=== PATIENT | female | born 1970 | race Hispanic/Latino ===

== ENCOUNTER 2017-03-25 01:40 | Emergency (ER) | payer MEDICARE, MEDICAID ==
[2017-03-25 01:41] VITALS: BMI 26.6
[2017-03-25 02:00] VITALS: BP 165/106; PULSE 79; RESP 18; TEMP 98.7; O2SAT 99
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
--- NOTE | 2017-03-25 03:04 | CT ---
EXAM: CT Head Without Intravenous Contrast CLINICAL HISTORY: 46 years old, female; Pain; Headache TECHNIQUE: Axial computed tomography images of the head/brain without intravenous contrast. This CT exam was performed using one or more of the following dose reduction techniques: automated exposure control, adjustment of the mA and/or kV according to patient size, and/or use of iterative reconstruction technique. Coronal and sagittal reformatted images were created and reviewed. COMPARISON: CT - HEAD W/O CONTRAST 12/31/2016 12:13:39 AM FINDINGS: Brain: No intracranial hemorrhage. No mass. No definite edema. Ventricles: No hydrocephalus. Bones/joints: No acute fracture. Soft tissues: Unremarkable. Sinuses: No acute sinusitis. Mastoid air cells: No mastoid effusion. Orbits: Unremarkable as visualized. IMPRESSION: 1. No acute intracranial abnormality. 2. Incidental/non-acute findings are described above.
== END 2017-03-25 05:28 | disposition home or self-care (01) ==
LOC: H.ER 01:40
DX: S09.90XA Unspecified injury of head, initial encounter (principal); Y04.0XXA Assault by unarmed brawl or fight, initial encounter; Y92.89 Other specified places as the place of occurrence of the external cause; E03.9 Hypothyroidism, unspecified; F20.9 Schizophrenia, unspecified; F31.9 Bipolar disorder, unspecified; I10 Essential (primary) hypertension; R51 Headache

== ENCOUNTER 2017-05-07 01:51 | Emergency (ER) | payer MEDICARE, MEDICAID ==
[2017-05-07 01:51] VITALS: BMI 26.6
[2017-05-07 02:16] VITALS: RESP 16; TEMP 98.1; O2SAT 96
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
[2017-05-07 03:03] VITALS: BP 150/100; PULSE 72
== END 2017-05-07 06:15 | disposition home or self-care (01) ==
LOC: H.ER 01:51
DX: S09.90XA Unspecified injury of head, initial encounter (principal); Y04.0XXA Assault by unarmed brawl or fight, initial encounter; Y92.89 Other specified places as the place of occurrence of the external cause; F20.9 Schizophrenia, unspecified; F31.9 Bipolar disorder, unspecified; I10 Essential (primary) hypertension

== ENCOUNTER 2017-06-07 23:29 | Observation (INO) | payer MEDICARE, MEDICAID ==
[2017-06-07 23:30] VITALS: BMI 26.6
[2017-06-08] VITALS: TEMP 98.8
--- NOTE | 2017-06-08 02:29 | ED PDOC ---
HPI: General Adult Time Seen by Provider: 06/08/17 02:20 Chief Complaint (Nursing): Med Refill Chief Complaint (Provider): Med refill History Per: Patient Additional Complaint(s): Patient took last dose of HCTZ today. Presents to ED without any complaints at this time Past Medical History Reviewed: Nursing Documentation, Vital Signs Vital Signs: Last Vital Signs Temp 98.8 F 06/07/17 23:58 Pulse 66 06/07/17 23:58 Resp 18 06/07/17 23:58 BP 138/91 H 06/07/17 23:58 Pulse Ox 99 06/08/17 02:29 - Medical History PMH: Bipolar Disorder, Depression, HTN, Hypothyroidism, Schizophrenia Denies: Chronic Kidney Disease - Surgical History Surgical History: Cholecystectomy - Family History Family History: States: Unknown Family Hx - Living Arrangements Living Arrangements: Other - Social History Current smoker - smoking cessation education provided: No Alcohol: None Drugs: Denies - Home Medications Home Medications: Ambulatory Orders Medication Instructions Recorded Metoprolol Tartrate 25 mg PO BID #14 tab 02/10/16 Hydroxyzine Pamoate [Vistaril] 25 mg PO TID PRN #30 capsule 06/27/16 Prednisone 3 tab PO DAILY #24 tablet 06/27/16 Naproxen [Naprosyn] 500 mg PO BID #20 tab 07/03/16 hydroCHLOROthiazide [Hydrodiuril] 25 mg PO DAILY #14 tab 09/21/16 hydroCHLOROthiazide [Hydrodiuril] 25 mg PO DAILY #30 tab 10/11/16 Ibuprofen [Motrin Tab] 600 mg PO Q6 #20 tab 10/14/16 Acetaminophen [Tylenol 325mg tab] 2 tab PO QID PRN #35 tab 11/10/16 hydroCHLOROthiazide [Hydrodiuril] 25 mg PO DAILY #20 tab 11/10/16 Ondansetron ODT [Zofran ODT] 1 odt PO BID PRN #6 odt 12/20/16 hydroCHLOROthiazide [Hydrodiuril] 25 mg PO DAILY #60 tab 12/23/16 Cephalexin [Keflex] 500 mg PO TID #24 capsule 01/09/17 hydroCHLOROthiazide [Hydrodiuril] 25 mg PO DAILY #20 tab 06/08/17 - Allergies Allergies/Adverse Reactions: Allergies Allergy/AdvReac Type Severity Reaction Status Date / Time divalproex sodium Allergy RASH Verified 12/20/16 11:39 [From Depakote] haloperidol [From Haldol] Allergy RASH Verified 12/20/16 11:39 haloperidol lactate Allergy RASH Verified 12/20/16 11:39 [From Haldol] olanzapine [From Zyprexa] Allergy RASH Verified 12/20/16 11:39 risperidone [From Risperdal] Allergy RASH Verified 12/20/16 11:39 Review of Systems ROS Statement: Except As Marked, All Systems Reviewed And Found Negative Physical Exam - Reviewed Nursing Documentation Reviewed: Yes Vital Signs Reviewed: Yes - Physical Exam Appears: Positive for: Well, Non-toxic, No Acute Distress Head Exam: Positive for: ATRAUMATIC, NORMAL INSPECTION, NORMOCEPHALIC Skin: Positive for: Normal Color, Warm, DRY Eye Exam: Positive for: EOMI, Normal appearance, PERRL ENT: Positive for: Normal ENT Inspection Neck: Positive for: Normal, Painless ROM Cardiovascular/Chest: Positive for: Regular Rate, Rhythm Respiratory: Positive for: CNT, Normal Breath Sounds Gastrointestinal/Abdominal: Positive for: Normal Exam, Bowel Sounds, Soft Back: Positive for: Normal Inspection Extremity: Positive for: Normal ROM Neurologic/Psych: Positive for: Alert, Oriented - ECG O2 Sat by Pulse Oximetry: 99 Disposition - Clinical Impression Clinical Impression: Prescription refill - Patient ED Disposition Is Patient to be Admitted: No - Disposition Disposition: Routine/Home Disposition Time: 05:22 Condition: STABLE
[2017-06-08 05:52] VITALS: BP 133/81; PULSE 89; RESP 17; O2SAT 98
== END 2017-06-08 05:55 | disposition home or self-care (01) ==
LOC: H.ER 23:29 → H.EROBSV 23:30
PROVIDERS: ADMIT Emergency Medicine; ATTEND Emergency Medicine
DX: Z76.0 Encounter for issue of repeat prescription (principal); F31.9 Bipolar disorder, unspecified; F20.9 Schizophrenia, unspecified; E03.9 Hypothyroidism, unspecified; I10 Essential (primary) hypertension
CPT/HCPCS: 99281; G0378

== ENCOUNTER 2017-08-07 22:17 | Emergency (ER) | payer MEDICARE, MEDICAID ==
[2017-08-07 22:17] VITALS: BMI 29.3
[2017-08-07 22:25] VITALS: PULSE 88; RESP 16; TEMP 98; O2SAT 100
--- NOTE | 2017-08-07 22:48 | ED PDOC ---
HPI: General Adult Time Seen by Provider: 08/07/17 22:46 Chief Complaint (Nursing): Med Refill Chief Complaint (Provider): med refill History Per: Patient (46 y/o female here for medication refill. States her PMD is currently on vacation. Denies any chest pain/abdominal pain/headache/ dizziness.) Past Medical History Reviewed: Historical Data, Nursing Documentation, Vital Signs Vital Signs: Last Vital Signs Temp 98.0 F 08/07/17 22:23 Pulse 88 08/07/17 22:23 Resp 16 08/07/17 22:23 BP 150/106 H 08/07/17 22:23 Pulse Ox 100 08/07/17 22:23 - Medical History PMH: Bipolar Disorder, Depression, HTN, Hypothyroidism, Schizophrenia Denies: Chronic Kidney Disease - Surgical History Surgical History: Cholecystectomy - Family History Family History: States: Unknown Family Hx - Home Medications Home Medications: Ambulatory Orders Medication Instructions Recorded hydroCHLOROthiazide [Hydrodiuril] 25 mg PO DAILY #20 tab 11/10/16 hydroCHLOROthiazide [Hydrodiuril] 25 mg PO DAILY #14 tab 08/07/17 - Allergies Allergies/Adverse Reactions: Allergies Allergy/AdvReac Type Severity Reaction Status Date / Time divalproex sodium Allergy RASH Verified 08/07/17 22:23 [From Depakote] haloperidol [From Haldol] Allergy RASH Verified 08/07/17 22:23 haloperidol lactate Allergy RASH Verified 08/07/17 22:23 [From Haldol] olanzapine [From Zyprexa] Allergy RASH Verified 08/07/17 22:23 risperidone [From Risperdal] Allergy RASH Verified 08/07/17 22:23 Review of Systems ROS Statement: Except As Marked, All Systems Reviewed And Found Negative Physical Exam - Reviewed Nursing Documentation Reviewed: Yes Vital Signs Reviewed: Yes - Physical Exam Appears: Positive for: Well, Non-toxic, No Acute Distress Head Exam: Positive for: ATRAUMATIC, NORMAL INSPECTION, NORMOCEPHALIC Skin: Positive for: Normal Color, Warm, DRY Eye Exam: Positive for: EOMI, Normal appearance, PERRL ENT: Positive for: Normal ENT Inspection Neck: Positive for: Normal, Painless ROM Cardiovascular/Chest: Positive for: Regular Rate, Rhythm Respiratory: Positive for: CNT, Normal Breath Sounds Gastrointestinal/Abdominal: Positive for: Normal Exam, Bowel Sounds, Soft Back: Positive for: Normal Inspection Extremity: Positive for: Normal ROM Neurologic/Psych: Positive for: Alert, Oriented - ECG O2 Sat by Pulse Oximetry: 100 Disposition - Clinical Impression Clinical Impression: Hypertension - Patient ED Disposition Is Patient to be Admitted: No - Disposition Referrals: [facility] [Outside] Disposition: Routine/Home Disposition Time: 22:48 Condition: FAIR Prescriptions: hydroCHLOROthiazide [Hydrodiuril] 25 mg PO DAILY #14 tab Instructions: Hypertension (DC) Forms: [employer] (Kiswahili)
[2017-08-07 22:57] VITALS: BP 148/90
[2017-08-07] MEDS ORDERED: Alum-Mag Hydrox-Simethicone Susp (30 mL) ONE (23:04)
== END 2017-08-07 22:56 | disposition home or self-care (01) ==
LOC: H.ER 22:17
DX: Z76.0 Encounter for issue of repeat prescription (principal); E03.9 Hypothyroidism, unspecified; F20.9 Schizophrenia, unspecified; F31.9 Bipolar disorder, unspecified; I10 Essential (primary) hypertension

== ENCOUNTER 2017-10-01 22:23 | Emergency (ER) | payer MEDICARE, MEDICAID ==
[2017-10-01 22:23] VITALS: BMI 29.0
[2017-10-01 22:45] VITALS: BP 146/97; PULSE 75; RESP 18; TEMP 97.8; O2SAT 99
--- NOTE | 2017-10-02 03:31 | ED PDOC ---
HPI: General Adult Time Seen by Provider: 10/01/17 22:59 Chief Complaint (Nursing): Med Refill Chief Complaint (Provider): Med Refill History Per: Patient History/Exam Limitations: no limitations Additional Complaint(s): Saige is a 47 y/o female who presents to the ED requesting a refill for her potassium medication. She has no other medical complaints. Patient is noted to be homeless. PMD: Sapna Bautista Past Medical History Reviewed: Historical Data, Nursing Documentation, Vital Signs Vital Signs: Last Vital Signs Temp 97.8 F 10/01/17 22:40 Pulse 75 10/01/17 22:40 Resp 18 10/01/17 22:40 BP 146/97 H 10/01/17 22:40 Pulse Ox 99 10/02/17 03:33 - Medical History PMH: Bipolar Disorder, Depression, HTN, Hypothyroidism, Schizophrenia Denies: Chronic Kidney Disease - Surgical History Surgical History: Cholecystectomy - Family History Family History: States: Unknown Family Hx - Home Medications Home Medications: Ambulatory Orders Medication Instructions Recorded hydroCHLOROthiazide [Hydrodiuril] 25 mg PO DAILY #20 tab 11/10/16 hydroCHLOROthiazide [Hydrodiuril] 25 mg PO DAILY #14 tab 08/07/17 Hydrochlorothiazide [Microzide] 25 mg PO DAILY #10 cap 09/16/17 Potassium Chloride 10 meq PO DAILY #10 capsule.er 09/16/17 Hydrochlorothiazide [Microzide] 12.5 mg PO DAILY #5 cap 10/02/17 Potassium Chloride 10 meq PO DAILY #5 capsule.er 10/02/17 - Allergies Allergies/Adverse Reactions: Allergies Allergy/AdvReac Type Severity Reaction Status Date / Time divalproex sodium Allergy RASH Verified 09/15/17 22:30 [From Depakote] haloperidol [From Haldol] Allergy RASH Verified 09/15/17 22:30 haloperidol lactate Allergy RASH Verified 09/15/17 22:30 [From Haldol] olanzapine [From Zyprexa] Allergy RASH Verified 09/15/17 22:30 risperidone [From Risperdal] Allergy RASH Verified 09/15/17 22:30 Review of Systems ROS Statement: Except As Marked, All Systems Reviewed And Found Negative Physical Exam - Reviewed Nursing Documentation Reviewed: Yes Vital Signs Reviewed: Yes - Physical Exam Appears: Positive for: Well, Non-toxic, No Acute Distress Head Exam: Positive for: ATRAUMATIC, NORMAL INSPECTION, NORMOCEPHALIC Skin: Positive for: Normal Color, Warm, Dry Eye Exam: Positive for: Normal appearance, EOMI, PERRL. Negative for: Nystagmus ENT: Positive for: Normal ENT Inspection Neck: Positive for: Normal, Painless ROM, Supple Cardiovascular/Chest: Positive for: Regular Rate, Rhythm. Negative for: Murmur Respiratory: Positive for: Normal Breath Sounds. Negative for: Respiratory Distress Gastrointestinal/Abdominal: Positive for: Normal Exam, Bowel Sounds, Soft. Negative for: Tenderness Back: Positive for: Normal Inspection Extremity: Positive for: Normal ROM. Negative for: Pedal Edema, Deformity Neurologic/Psych: Positive for: Alert, Oriented. Negative for: Motor/Sensory Deficits - ECG O2 Sat by Pulse Oximetry: 99 (RA) Pulse Ox Interpretation: Normal Medical Decision Making Medical Decision Making: Time: 22:59 --Patient was given refill for medication for 2-3 days --Patient will follow up with PMD to get more medication. Scribe Attestation: Documented by Misbah Dupont, acting as a scribe for Amira Kee PA-C Provider Scribe Attestation: All medical record entries made by the Scribe were at my direction and personally dictated by me. I have reviewed the chart and agree that the record accurately reflects my personal performance of the history, physical exam, medical decision making, and the department course for this patient. I have also personally directed, reviewed, and agree with the discharge instructions and disposition. Disposition - Clinical Impression Clinical Impression: Encounter for medical screening examination - Patient ED Disposition Is Patient to be Admitted: No Counseled Patient/Family Regarding: Studies Performed, Diagnosis, Need For Followup, Rx Given - Disposition Disposition: Routine/Home Disposition Time: 03:30 Condition: STABLE Additional Instructions: you were given only a a few pills of your medication. therefore you need to see your doctor. Prescriptions: Hydrochlorothiazide [Microzide] 12.5 mg PO DAILY #5 cap Potassium Chloride 10 meq PO DAILY #5 capsule.er Instructions: Chronic Hypertension (ED) Forms: [facility] (Setsw[place])
== END 2017-10-02 05:51 | disposition home or self-care (01) ==
LOC: H.ER 22:23
DX: Z76.0 Encounter for issue of repeat prescription (principal); F20.9 Schizophrenia, unspecified; F31.9 Bipolar disorder, unspecified; I10 Essential (primary) hypertension

== ENCOUNTER 2017-10-15 02:23 | Emergency (ER) | payer MEDICARE, MEDICAID ==
[2017-10-15 03:03] VITALS: BMI 26.6
[2017-10-15 03:05] VITALS: BP 148/94; PULSE 67; RESP 18; TEMP 98.3; O2SAT 97
--- NOTE | 2017-10-15 04:16 | ED PDOC ---
HPI: General Adult Time Seen by Provider: 10/15/17 03:30 Chief Complaint (Nursing): Cough, Cold, Congestion Chief Complaint (Provider): medication refill History Per: Patient History/Exam Limitations: no limitations Additional History Per: Patient Additional Complaint(s): 47 y/o female history of hypertension presents requesting refill on her blood pressure and potassium medications. Patient states she has not been able to get to see her primary doctor. Contrary to triage note, patient states she is only her for her medication refills. Denies fever, headache, dizziness, extremity numbness/weakness, cough, chest pain, shortness of breath, palpitations, leg pain/swelling. Past Medical History Reviewed: Historical Data, Nursing Documentation, Vital Signs Vital Signs: Last Vital Signs Temp 98.3 F 10/15/17 03:04 Pulse 67 10/15/17 03:04 Resp 18 10/15/17 03:04 BP 148/94 H 10/15/17 03:04 Pulse Ox 97 10/15/17 03:04 - Medical History PMH: Bipolar Disorder, Depression, HTN, Hypothyroidism, Schizophrenia Denies: Chronic Kidney Disease - Surgical History Surgical History: Cholecystectomy - Family History Family History: States: Unknown Family Hx - Home Medications Home Medications: Ambulatory Orders Medication Instructions Recorded Loratadine [Claritin] 10 mg PO DAILY PRN #14 tab 10/02/17 Potassium Chloride 10 meq PO DAILY #10 tab.er.prt 10/15/17 hydroCHLOROthiazide [Hydrodiuril] 25 mg PO DAILY #10 tab 10/15/17 - Allergies Allergies/Adverse Reactions: Allergies Allergy/AdvReac Type Severity Reaction Status Date / Time divalproex sodium Allergy RASH Verified 10/15/17 03:03 [From Depakote] haloperidol [From Haldol] Allergy RASH Verified 10/15/17 03:03 haloperidol lactate Allergy RASH Verified 10/15/17 03:03 [From Haldol] olanzapine [From Zyprexa] Allergy RASH Verified 10/15/17 03:03 risperidone [From Risperdal] Allergy RASH Verified 10/15/17 03:03 Review of Systems ROS Statement: Except As Marked, All Systems Reviewed And Found Negative Physical Exam - Reviewed Nursing Documentation Reviewed: Yes Vital Signs Reviewed: Yes - Physical Exam Appears: Positive for: Well, Non-toxic, No Acute Distress (sleeping) Head Exam: Positive for: ATRAUMATIC, NORMAL INSPECTION, NORMOCEPHALIC Skin: Positive for: Normal Color Eye Exam: Positive for: Normal appearance ENT: Positive for: Normal ENT Inspection Cardiovascular/Chest: Positive for: Regular Rate, Rhythm Respiratory: Positive for: Normal Breath Sounds Gastrointestinal/Abdominal: Positive for: Normal Exam Back: Positive for: Normal Inspection Extremity: Positive for: Normal ROM Neurologic/Psych: Positive for: Alert, Oriented - ECG O2 Sat by Pulse Oximetry: 97 - Progress ED Course And Treament: Patient stressed importance of PMD follow up. 10-day supply rx provided for medications. Return to ED for worsening/concerning symptoms. Disposition - Clinical Impression Clinical Impression: Medication refill - Patient ED Disposition Is Patient to be Admitted: No Counseled Patient/Family Regarding: Diagnosis, Need For Followup - Disposition Referrals: Sapna Bautista MD [Primary Care Provider] - Disposition: Routine/Home Disposition Time: 04:17 Condition: STABLE Prescriptions: hydroCHLOROthiazide [Hydrodiuril] 25 mg PO DAILY #10 tab Potassium Chloride 10 meq PO DAILY #10 tab.er.prt Instructions: Medicine Refill (ED)
== END 2017-10-15 04:58 | disposition home or self-care (01) ==
LOC: H.ER 02:23
DX: Z76.0 Encounter for issue of repeat prescription (principal); F20.9 Schizophrenia, unspecified; F31.9 Bipolar disorder, unspecified; I10 Essential (primary) hypertension

== ENCOUNTER 2017-10-26 22:07 | Emergency (ER) | payer MEDICARE, MEDICAID ==
[2017-10-26 22:07] VITALS: BMI 26.6
[2017-10-26 22:24] VITALS: PULSE 79; RESP 18; TEMP 97.9
--- NOTE | 2017-10-26 22:29 | ED PDOC ---
HPI: General Adult Time Seen by Provider: 10/26/17 22:26 Chief Complaint (Nursing): Med Refill Chief Complaint (Provider): med refill History Per: Patient (47 y/o female undomiciled here for med refill. Patient unable to obtain rx today and has been out for 2 days. No complaints of chest pain/abdominal pain/headache.) Past Medical History Reviewed: Historical Data, Nursing Documentation, Vital Signs Vital Signs: Last Vital Signs Temp 97.9 F 10/26/17 22:20 Pulse 79 10/26/17 22:20 Resp 18 10/26/17 22:20 BP 163/101 H 10/26/17 22:20 Pulse Ox 96 10/26/17 22:20 - Medical History PMH: Bipolar Disorder, Depression, HTN, Hypothyroidism, Schizophrenia Denies: Chronic Kidney Disease - Surgical History Surgical History: Cholecystectomy - Family History Family History: States: Unknown Family Hx - Home Medications Home Medications: Ambulatory Orders Medication Instructions Recorded Loratadine [Claritin] 10 mg PO DAILY PRN #14 tab 10/02/17 Potassium Chloride 10 meq PO DAILY #10 tab.er.prt 10/15/17 hydroCHLOROthiazide [Hydrodiuril] 25 mg PO DAILY #10 tab 10/15/17 hydroCHLOROthiazide [Hydrodiuril] 25 mg PO DAILY #15 tab 10/26/17 - Allergies Allergies/Adverse Reactions: Allergies Allergy/AdvReac Type Severity Reaction Status Date / Time divalproex sodium Allergy RASH Verified 10/15/17 03:03 [From Depakote] haloperidol [From Haldol] Allergy RASH Verified 10/15/17 03:03 haloperidol lactate Allergy RASH Verified 10/15/17 03:03 [From Haldol] olanzapine [From Zyprexa] Allergy RASH Verified 10/15/17 03:03 risperidone [From Risperdal] Allergy RASH Verified 10/15/17 03:03 Review of Systems ROS Statement: Except As Marked, All Systems Reviewed And Found Negative Physical Exam - Reviewed Nursing Documentation Reviewed: Yes Vital Signs Reviewed: Yes - Physical Exam Appears: Positive for: Well, Non-toxic, No Acute Distress Head Exam: Positive for: ATRAUMATIC, NORMAL INSPECTION, NORMOCEPHALIC Skin: Positive for: Normal Color, Warm, DRY Eye Exam: Positive for: EOMI, Normal appearance, PERRL ENT: Positive for: Normal ENT Inspection Neck: Positive for: Normal, Painless ROM Cardiovascular/Chest: Positive for: Regular Rate, Rhythm Respiratory: Positive for: CNT, Normal Breath Sounds Gastrointestinal/Abdominal: Positive for: Normal Exam, Bowel Sounds, Soft Back: Positive for: Normal Inspection Extremity: Positive for: Normal ROM Neurologic/Psych: Positive for: Alert, Oriented - ECG O2 Sat by Pulse Oximetry: 96 - Progress ED Course And Treament: hctz 25 mg x 1 dose Disposition - Clinical Impression Clinical Impression: Hypertension - Patient ED Disposition Is Patient to be Admitted: No - Disposition Referrals: Sapna Bautista MD [Primary Care Provider] - Disposition: Routine/Home Disposition Time: 22:27 Condition: FAIR Prescriptions: hydroCHLOROthiazide [Hydrodiuril] 25 mg PO DAILY #15 tab Instructions: Hypertension (ED)
[2017-10-26 23:30] VITALS: BP 135/89; O2SAT 99
== END 2017-10-26 23:19 | disposition home or self-care (01) ==
LOC: H.ER 22:07 → SUPCPDRO 22:07 → H.ER 23:19
DX: Z76.0 Encounter for issue of repeat prescription (principal); I10 Essential (primary) hypertension

== ENCOUNTER 2017-11-05 00:59 | Emergency (ER) | payer MEDICARE, MEDICAID ==
[2017-11-05 01:00] VITALS: BMI 26.6
[2017-11-05 01:29] VITALS: BP 152/98; PULSE 74; RESP 16; TEMP 97.9; O2SAT 100
--- NOTE | 2017-11-05 02:34 | ED PDOC ---
Lower Extremity Pain/Injury Time Seen by Provider: 11/05/17 02:00 Chief Complaint (Nursing): Lower Extremity Problem/Injury Chief Complaint (Provider): Bilateral ankle pain History Per: Patient History/Exam Limitations: no limitations Onset/Duration Of Symptoms: Other (week) Past Medical History Reviewed: Historical Data, Nursing Documentation, Vital Signs Vital Signs: Last Vital Signs Temp 97.9 F 11/05/17 01:27 Pulse 74 11/05/17 01:27 Resp 16 11/05/17 01:27 BP 152/98 H 11/05/17 01:27 Pulse Ox 100 11/05/17 01:27 - Medical History PMH: Bipolar Disorder, Depression, HTN, Hypothyroidism, Schizophrenia Denies: Chronic Kidney Disease - Surgical History Surgical History: Cholecystectomy - Family History Family History: States: Unknown Family Hx - Home Medications Home Medications: Ambulatory Orders Medication Instructions Recorded Loratadine [Claritin] 10 mg PO DAILY PRN #14 tab 10/02/17 Potassium Chloride 10 meq PO DAILY #10 tab.er.prt 10/15/17 hydroCHLOROthiazide [Hydrodiuril] 25 mg PO DAILY #10 tab 10/15/17 hydroCHLOROthiazide [Hydrodiuril] 25 mg PO DAILY #15 tab 10/26/17 - Allergies Allergies/Adverse Reactions: Allergies Allergy/AdvReac Type Severity Reaction Status Date / Time divalproex sodium Allergy RASH Verified 10/15/17 03:03 [From Depakote] haloperidol [From Haldol] Allergy RASH Verified 10/15/17 03:03 haloperidol lactate Allergy RASH Verified 10/15/17 03:03 [From Haldol] olanzapine [From Zyprexa] Allergy RASH Verified 10/15/17 03:03 risperidone [From Risperdal] Allergy RASH Verified 10/15/17 03:03 Review of Systems ROS Statement: Except As Marked, All Systems Reviewed And Found Negative Musculoskeletal: Positive for: Other (atraumatic bilateral ankle pain) Physical Exam - Reviewed Nursing Documentation Reviewed: Yes Vital Signs Reviewed: Yes - Physical Exam Appears: Positive for: Well, Non-toxic, No Acute Distress Head Exam: Positive for: ATRAUMATIC, NORMAL INSPECTION, NORMOCEPHALIC Skin: Positive for: Normal Color, Warm, Dry Eye Exam: Positive for: Normal appearance Neck: Positive for: Normal Cardiovascular/Chest: Positive for: Regular Rate, Rhythm. Negative for: Murmur Respiratory: Negative for: Accessory Muscle Use, Respiratory Distress Extremity: Positive for: Normal ROM, Other (negative Yenny's sign). Negative for: Deformity (cellulitis) Neurologic/Psych: Positive for: Alert, Oriented (x3) - ECG O2 Sat by Pulse Oximetry: 100 (RA) Pulse Ox Interpretation: Normal Disposition - Clinical Impression Clinical Impression: Leg pain - Disposition Referrals: Podiatry Clinic [Outside] Sapna Bautista MD [Primary Care Provider] - Condition: FAIR Instructions: Leg Cramps (ED) Forms: [employer] (C[place] Verdean)
--- NOTE | 2017-11-05 02:49 | ED PDOC ---
Lower Extremity Pain/Injury Time Seen by Provider: 11/05/17 02:00 Chief Complaint (Nursing): Lower Extremity Problem/Injury Chief Complaint (Provider): Bilateral ankle pain History Per: Patient History/Exam Limitations: no limitations Additional Complaint(s): Patient is a 47 y/o undomiciled female with no significant past medical history presenting to the emergency department for bilateral ankle pain ongoing for at least a week. Reports taking Tylenol with no significant relief. Denies any fall or other complaints. PCP: none provided. Past Medical History Reviewed: Historical Data, Nursing Documentation, Vital Signs Vital Signs: Last Vital Signs Temp 97.9 F 11/05/17 01:27 Pulse 74 11/05/17 01:27 Resp 16 11/05/17 01:27 BP 152/98 H 11/05/17 01:27 Pulse Ox 100 11/05/17 01:27 - Medical History PMH: Bipolar Disorder, Depression, HTN, Hypothyroidism, Schizophrenia Denies: Chronic Kidney Disease - Surgical History Surgical History: Cholecystectomy - Family History Family History: States: Unknown Family Hx - Home Medications Home Medications: Ambulatory Orders Medication Instructions Recorded Loratadine [Claritin] 10 mg PO DAILY PRN #14 tab 10/02/17 Potassium Chloride 10 meq PO DAILY #10 tab.er.prt 10/15/17 hydroCHLOROthiazide [Hydrodiuril] 25 mg PO DAILY #10 tab 10/15/17 hydroCHLOROthiazide [Hydrodiuril] 25 mg PO DAILY #15 tab 10/26/17 - Allergies Allergies/Adverse Reactions: Allergies Allergy/AdvReac Type Severity Reaction Status Date / Time divalproex sodium Allergy RASH Verified 10/15/17 03:03 [From Depakote] haloperidol [From Haldol] Allergy RASH Verified 10/15/17 03:03 haloperidol lactate Allergy RASH Verified 10/15/17 03:03 [From Haldol] olanzapine [From Zyprexa] Allergy RASH Verified 10/15/17 03:03 risperidone [From Risperdal] Allergy RASH Verified 10/15/17 03:03 Review of Systems ROS Statement: Except As Marked, All Systems Reviewed And Found Negative Musculoskeletal: Positive for: Foot Pain (atraumatic bilateral ankle pain) Physical Exam - Reviewed Nursing Documentation Reviewed: Yes Vital Signs Reviewed: Yes - Physical Exam Appears: Positive for: Well, Non-toxic, No Acute Distress Head Exam: Positive for: ATRAUMATIC Skin: Positive for: Normal Color, Warm, Dry Eye Exam: Positive for: Normal appearance Neck: Positive for: Normal Cardiovascular/Chest: Positive for: Regular Rate, Rhythm Respiratory: Negative for: Accessory Muscle Use, Respiratory Distress Extremity: Positive for: Normal ROM, Other (negative Yenny's sign). Negative for: Deformity (cellulitis) Neurologic/Psych: Positive for: Alert, Oriented (x3) - ECG O2 Sat by Pulse Oximetry: 100 (RA) Pulse Ox Interpretation: Normal Medical Decision Making Medical Decision Makin:00 Impression: bilateral ankle pain 02:15 Patient is sleeping comfortable in bed. Scribe Attestation: Documented by Celeste Leiva, acting as a scribe for SLOANE Griggs. Provider Scribe Attestation: All medical record entries made by the Scribe were at my direction and personally dictated by me. I have reviewed the chart and agree that the record accurately reflects my personal performance of the history, physical exam, medical decision making, and the department course for this patient. I have also personally directed, reviewed, and agree with the discharge instructions and disposition. Disposition - Clinical Impression Clinical Impression: Leg pain - Patient ED Disposition Is Patient to be Admitted: No - Disposition Referrals: Podiatry Clinic [Outside] Sapna Bautista MD [Primary Care Provider] - Disposition: Routine/Home Disposition Time: 02:05 Condition: FAIR Instructions: Leg Cramps (ED) Forms: [employer] (Sami)
== END 2017-11-05 06:00 | disposition home or self-care (01) ==
LOC: H.ER 00:59
DX: M25.579 Pain in unspecified ankle and joints of unspecified foot (principal); E03.9 Hypothyroidism, unspecified; F20.9 Schizophrenia, unspecified; F31.9 Bipolar disorder, unspecified; I10 Essential (primary) hypertension

== ENCOUNTER 2017-11-20 00:06 | Emergency (ER) | payer MEDICARE, MEDICAID ==
[2017-11-20 00:51] VITALS: BMI 28.1
[2017-11-20 00:54] VITALS: PULSE 79; RESP 16; TEMP 97.8; O2SAT 96
--- NOTE | 2017-11-20 02:42 | ED PDOC ---
HPI: General Adult Time Seen by Provider: 11/20/17 01:56 Chief Complaint (Nursing): Headache Chief Complaint (Provider): medication refill History Per: Patient Additional Complaint(s): 47 y/o nondomiciled female presents to ED requesting refill on her blood pressure medication. Patient also notes bilateral ankle pain x weeks and "mild " headache x 2 days. Denies fever, dizziness, extremity numbness/weakness, nausea/vomiting, chest pain, shortness of breath, palpitations, calf pain/ swelling, recent travel. Of note, patient sleeping comfortably in stretcher before short story writer entered room. Past Medical History Reviewed: Historical Data, Nursing Documentation, Vital Signs Vital Signs: Last Vital Signs Temp 97.8 F 11/20/17 00:52 Pulse 79 11/20/17 00:52 Resp 16 11/20/17 00:52 BP 158/93 H 11/20/17 00:52 Pulse Ox 96 11/20/17 02:44 - Medical History PMH: Bipolar Disorder, Depression, HTN, Hypothyroidism, Schizophrenia Denies: Chronic Kidney Disease - Surgical History Surgical History: Cholecystectomy - Family History Family History: States: Unknown Family Hx - Home Medications Home Medications: Ambulatory Orders Medication Instructions Recorded Loratadine [Claritin] 10 mg PO DAILY PRN #14 tab 10/02/17 Potassium Chloride 10 meq PO DAILY #10 tab.er.prt 10/15/17 hydroCHLOROthiazide [Hydrodiuril] 25 mg PO DAILY #10 tab 10/15/17 hydroCHLOROthiazide [Hydrodiuril] 25 mg PO DAILY #15 tab 10/26/17 hydroCHLOROthiazide [Hydrodiuril] 25 mg PO DAILY #10 tab 11/20/17 - Allergies Allergies/Adverse Reactions: Allergies Allergy/AdvReac Type Severity Reaction Status Date / Time divalproex sodium Allergy RASH Verified 11/20/17 00:51 [From Depakote] haloperidol [From Haldol] Allergy RASH Verified 11/20/17 00:51 haloperidol lactate Allergy RASH Verified 11/20/17 00:51 [From Haldol] olanzapine [From Zyprexa] Allergy RASH Verified 11/20/17 00:51 risperidone [From Risperdal] Allergy RASH Verified 11/20/17 00:51 Review of Systems ROS Statement: Except As Marked, All Systems Reviewed And Found Negative Musculoskeletal: Positive for: Foot Pain Neurological: Positive for: Headache Physical Exam - Reviewed Nursing Documentation Reviewed: Yes Vital Signs Reviewed: Yes - Physical Exam Appears: Positive for: Well, Non-toxic, No Acute Distress Head Exam: Positive for: ATRAUMATIC, NORMAL INSPECTION, NORMOCEPHALIC Skin: Positive for: Normal Color Eye Exam: Positive for: Normal appearance, EOMI, PERRL ENT: Positive for: Normal ENT Inspection Cardiovascular/Chest: Positive for: Regular Rate, Rhythm Respiratory: Positive for: Normal Breath Sounds Gastrointestinal/Abdominal: Positive for: Normal Exam Back: Positive for: Normal Inspection Extremity: Positive for: Normal ROM. Negative for: Calf Tenderness Neurologic/Psych: Positive for: Alert, Oriented. Negative for: Motor/Sensory Deficits - ECG O2 Sat by Pulse Oximetry: 96 - Progress ED Course And Treament: Patient given Tylenol PO with improvement of symptoms. Rx Hctz provided. Advised follow up PMD 2-3 days. Return precautions given. Disposition - Clinical Impression Clinical Impression: Medication refill, Leg pain, Headache - Patient ED Disposition Is Patient to be Admitted: No Counseled Patient/Family Regarding: Diagnosis, Need For Followup, Rx Given - Disposition Referrals: Sapna Bautista MD [Primary Care Provider] - Disposition: Routine/Home Disposition Time: 02:42 Condition: STABLE Prescriptions: hydroCHLOROthiazide [Hydrodiuril] 25 mg PO DAILY #10 tab Instructions: Medicine Refill (ED), Leg Pain (ED), Acute Headache (ED) Forms: [facility] [facility] (Tanzanian)
[2017-11-20 03:35] VITALS: BP 144/84
== END 2017-11-20 03:35 | disposition home or self-care (01) ==
LOC: H.ER 00:06
DX: Z76.0 Encounter for issue of repeat prescription (principal); E03.9 Hypothyroidism, unspecified; F20.9 Schizophrenia, unspecified; F31.9 Bipolar disorder, unspecified; I10 Essential (primary) hypertension

== ENCOUNTER 2017-11-21 01:13 | Emergency (ER) | payer MEDICARE, MEDICAID ==
[2017-11-21 01:13] VITALS: BMI 28.1
[2017-11-21 01:43] VITALS: PULSE 65; RESP 18; TEMP 98.9; O2SAT 98
--- NOTE | 2017-11-21 02:09 | ED PDOC ---
HPI: Head Injury Time Seen by Provider: 11/21/17 01:52 Chief Complaint (Nursing): Trauma Chief Complaint (Provider): head injury History Per: Patient, Family Injury Occurred (Timing): Just Before Arrival Patient States: Fell Striking Head Additional Complaint(s): 47 y/o female presents for evaluation of head injury sustained 1 hour ago. Sister states patient tripped on sidewalk and fell face forward. No LOC. Patient complaining of frontal headache. Denies nausea/vomiting, vision changes , extremity numbness/weakness, neck/back pain. Past Medical History Reviewed: Historical Data, Nursing Documentation, Vital Signs Vital Signs: Last Vital Signs Temp 98.9 F 11/21/17 01:40 Pulse 65 11/21/17 01:40 Resp 18 11/21/17 01:40 BP 170/107 H 11/21/17 01:40 Pulse Ox 98 11/21/17 01:40 - Medical History PMH: Bipolar Disorder, Depression, HTN, Hypothyroidism, Schizophrenia Denies: Chronic Kidney Disease - Surgical History Surgical History: Cholecystectomy - Family History Family History: States: Unknown Family Hx - Home Medications Home Medications: Ambulatory Orders Medication Instructions Recorded Potassium Chloride 10 meq PO DAILY #10 tab.er.prt 10/15/17 hydroCHLOROthiazide [Hydrodiuril] 25 mg PO DAILY #10 tab 10/15/17 Clotrimazole/Betamethasone 1 appful EXT BID #30 g 11/20/17 [Lotrisone] DiphenhydrAMINE [Benadryl] 50 mg PO QID PRN #30 cap 11/20/17 - Allergies Allergies/Adverse Reactions: Allergies Allergy/AdvReac Type Severity Reaction Status Date / Time divalproex sodium Allergy RASH Verified 11/20/17 19:50 [From Depakote] haloperidol [From Haldol] Allergy RASH Verified 11/20/17 19:50 haloperidol lactate Allergy RASH Verified 11/20/17 19:50 [From Haldol] olanzapine [From Zyprexa] Allergy RASH Verified 11/20/17 19:50 risperidone [From Risperdal] Allergy RASH Verified 11/20/17 19:50 Review of Systems ROS Statement: Except As Marked, All Systems Reviewed And Found Negative Neurological: Positive for: Headache Physical Exam - Reviewed Nursing Documentation Reviewed: Yes Vital Signs Reviewed: Yes - Physical Exam Appears: Positive for: Well, Non-toxic, No Acute Distress (sleeping) Head Exam: Positive for: ATRAUMATIC, NORMAL INSPECTION, NORMOCEPHALIC Skin: Positive for: Normal Color Eye Exam: Positive for: Normal appearance, EOMI, PERRL ENT: Positive for: Normal ENT Inspection Cardiovascular/Chest: Positive for: Regular Rate, Rhythm Respiratory: Positive for: Normal Breath Sounds Gastrointestinal/Abdominal: Positive for: Normal Exam Back: Positive for: Normal Inspection Extremity: Positive for: Normal ROM Neurologic/Psych: Positive for: Alert, Oriented. Negative for: Motor/Sensory Deficits - ECG O2 Sat by Pulse Oximetry: 98 - Progress ED Course And Treament: Tylenol PO On re-eval, patient sleeping; no distress noted. States headache improved upon awakening. Patient educated on findings, discharged with instructions to follow up PMD 2-3 days. Return precautions given. Disposition - Clinical Impression Clinical Impression: Acute head injury - Patient ED Disposition Is Patient to be Admitted: No Counseled Patient/Family Regarding: Diagnosis, Need For Followup - Disposition Referrals: Sapna Bautista MD [Primary Care Provider] - Disposition: Routine/Home Disposition Time: 03:13 Condition: IMPROVED Instructions: Head Injury (ED)
[2017-11-21 03:15] VITALS: BP 154/104
== END 2017-11-21 05:45 | disposition home or self-care (01) ==
LOC: H.ER 01:13
DX: S09.90XA Unspecified injury of head, initial encounter (principal); W01.0XXA Fall on same level from slipping, tripping and stumbling without subsequent striking against object, initial encounter; Y92.480 Sidewalk as the place of occurrence of the external cause; E03.9 Hypothyroidism, unspecified; F20.9 Schizophrenia, unspecified; F31.9 Bipolar disorder, unspecified; I10 Essential (primary) hypertension

== ENCOUNTER 2017-12-07 23:18 | Emergency (ER) | payer MEDICARE, MEDICAID ==
[2017-12-07 23:19] VITALS: BMI 28.1
[2017-12-07 23:57] VITALS: BP 198/121; PULSE 83; RESP 16; TEMP 97; O2SAT 98
--- NOTE | 2017-12-08 02:03 | ED PDOC ---
HPI: General Adult Chief Complaint (Provider): sore throat Time Seen by Provider: 12/08/17 00:55 Chief Complaint (Nursing): Cough, Cold, Congestion Additional Complaint(s): 89yo F homeless with sore throat and cough subjective fever no chills . elevated BP- states she has been without medication x 1 week . no dizziness no vision changes no PARK (Amira Kee) Past Medical History Reviewed: Historical Data, Nursing Documentation, Vital Signs - Medical History PMH: Bipolar Disorder, Depression, HTN, Hypothyroidism, Schizophrenia Denies: Chronic Kidney Disease - Surgical History Surgical History: Cholecystectomy - Family History Family History: States: Unknown Family Hx Vital Signs: Last Vital Signs Temp 97 F L 12/07/17 23:52 Pulse 83 12/07/17 23:52 Resp 16 12/07/17 23:52 BP 198/121 H 12/07/17 23:52 Pulse Ox 98 12/08/17 05:13 - Home Medications Home Medications: Ambulatory Orders Medication Instructions Recorded Potassium Chloride 10 meq PO DAILY #10 tab.er.prt 10/15/17 hydroCHLOROthiazide [Hydrodiuril] 25 mg PO DAILY #10 tab 10/15/17 Clotrimazole/Betamethasone 1 appful EXT BID #30 g 11/20/17 [Lotrisone] DiphenhydrAMINE [Benadryl] 50 mg PO QID PRN #30 cap 11/20/17 hydroCHLOROthiazide [Hydrodiuril] 25 mg PO DAILY #30 tab 12/08/17 - Allergies Allergies/Adverse Reactions: Allergies Allergy/AdvReac Type Severity Reaction Status Date / Time divalproex sodium Allergy RASH Verified 11/20/17 19:50 [From Depakote] haloperidol [From Haldol] Allergy RASH Verified 11/20/17 19:50 haloperidol lactate Allergy RASH Verified 11/20/17 19:50 [From Haldol] olanzapine [From Zyprexa] Allergy RASH Verified 11/20/17 19:50 risperidone [From Risperdal] Allergy RASH Verified 11/20/17 19:50 Review of Systems ROS Statement: Except As Marked, All Systems Reviewed And Found Negative ENT: Positive for: Throat Pain Respiratory: Positive for: Cough Physical Exam - Reviewed Nursing Documentation Reviewed: Yes Vital Signs Reviewed: Yes - Physical Exam Appears: Positive for: Well, Non-toxic, No Acute Distress Skin: Positive for: Normal Color, Warm, DRY Eye Exam: Positive for: EOMI, Normal appearance, PERRL ENT: Positive for: Normal ENT Inspection Cardiovascular/Chest: Positive for: Regular Rate, Rhythm Respiratory: Positive for: CNT, Normal Breath Sounds Neurologic/Psych: Positive for: Alert, Oriented - ECG O2 Sat by Pulse Oximetry: 98 - Progress ED Course And Treament: Orders Category Date Time Status CHEST TWO VIEWS (PA/LAT) [RAD] Stat Exams 12/08/17 00:42 Ordered Metoprolol Tartrate [Lopressor] Med 12/08/17 01:28 Discontinued 50 mg .ROUTE .STK-MED ONE Metoprolol Tartrate [Lopressor] Med 12/08/17 00:43 Discontinued 50 mg PO STAT STA RAPID STREP GROUP A ANTIGEN Stat Serology 12/08/17 01:48 Received (Amira Kee) Medical Decision Making Medical Decision Making: stable for d/c (Amira Kee) Disposition - Patient ED Disposition Is Patient to be Admitted: No Counseled Patient/Family Regarding: Need For Followup - Disposition Disposition: Routine/Home Disposition Time: 05:11 - Clinical Impression Clinical Impression: Chronic cough - Disposition Condition: STABLE Prescriptions: hydroCHLOROthiazide [Hydrodiuril] 25 mg PO DAILY #30 tab Instructions: Chronic Hypertension (ED) Forms: [employer] [facility] (Belarusian)
--- NOTE | 2017-12-08 10:14 | RAD ---
HISTORY: cough COMPARISON: 2010 TECHNIQUE: Chest PA and lateral FINDINGS: LUNGS: Minimal linear scarring is seen at the left lung base. No focal alveolar infiltrate is seen. Stable minor interstitial changes are noted. PLEURA: No significant pleural effusion identified. No pneumothorax apparent. CARDIOVASCULAR: Stable appearance of the heart and aorta with mild uncoiling of the aorta noted. OSSEOUS STRUCTURES: No significant abnormalities. VISUALIZED UPPER ABDOMEN: Normal. OTHER FINDINGS: Trachea is midline. Lumbar spine is stable. IMPRESSION: No focal infiltrate or CHF.
== END 2017-12-08 06:46 | disposition home or self-care (01) ==
LOC: H.ER 23:18
DX: R05 Cough (principal); I10 Essential (primary) hypertension; Z59.0 Homelessness; E03.9 Hypothyroidism, unspecified; F20.9 Schizophrenia, unspecified; F31.9 Bipolar disorder, unspecified

== ENCOUNTER 2017-12-12 23:22 | Emergency (ER) | payer MEDICARE, MEDICAID ==
[2017-12-12 23:22] VITALS: BMI 28.1
[2017-12-12 23:40] VITALS: BP 156/104; PULSE 79; RESP 16; TEMP 98.2; O2SAT 97
[2017-12-13] MEDS ORDERED: Promethazine 12.5 mg/10 ml Syrup PO STA (00:03)
--- NOTE | 2017-12-13 00:16 | ED PDOC ---
HPI: CCC, URI, Sore Throat Time Seen by Provider: 12/12/17 23:28 Chief Complaint (Nursing): Medical Clearance Chief Complaint (Provider): Cough History Per: Patient History/Exam Limitations: no limitations Onset/Duration Of Symptoms: Days (x 3) Current Symptoms Are (Timing): Still Present Additional Complaint(s): 47 year old female presents to the ED complaining of dry cough, onset 3 days ago. She states that her sister is sick. Also complains of nasal congestion. Denies fever or chills. PMd: none provided Past Medical History Reviewed: Historical Data, Nursing Documentation, Vital Signs Vital Signs: Last Vital Signs Temp 98.2 F 12/12/17 23:33 Pulse 79 12/12/17 23:33 Resp 16 12/12/17 23:33 BP 156/104 H 12/12/17 23:33 Pulse Ox 97 12/13/17 04:43 - Medical History PMH: Bipolar Disorder, Depression, HTN, Hypothyroidism, Schizophrenia Denies: Chronic Kidney Disease - Surgical History Surgical History: Cholecystectomy - Family History Family History: States: Unknown Family Hx - Home Medications Home Medications: Ambulatory Orders Medication Instructions Recorded Potassium Chloride 10 meq PO DAILY #10 tab.er.prt 10/15/17 hydroCHLOROthiazide [Hydrodiuril] 25 mg PO DAILY #10 tab 10/15/17 Clotrimazole/Betamethasone 1 appful EXT BID #30 g 11/20/17 [Lotrisone] DiphenhydrAMINE [Benadryl] 50 mg PO QID PRN #30 cap 11/20/17 hydroCHLOROthiazide [Hydrodiuril] 25 mg PO DAILY #30 tab 12/08/17 Promethazine [Phenergan] 12.5 mg PO BID PRN #12 tab 12/13/17 - Allergies Allergies/Adverse Reactions: Allergies Allergy/AdvReac Type Severity Reaction Status Date / Time divalproex sodium Allergy RASH Verified 11/20/17 19:50 [From Depakote] haloperidol [From Haldol] Allergy RASH Verified 11/20/17 19:50 haloperidol lactate Allergy RASH Verified 11/20/17 19:50 [From Haldol] olanzapine [From Zyprexa] Allergy RASH Verified 11/20/17 19:50 risperidone [From Risperdal] Allergy RASH Verified 11/20/17 19:50 Review of Systems ROS Statement: Except As Marked, All Systems Reviewed And Found Negative Constitutional: Negative for: Fever, Chills ENT: Positive for: Nose Congestion Respiratory: Positive for: Cough (dry) Physical Exam - Reviewed Nursing Documentation Reviewed: Yes Vital Signs Reviewed: Yes - Physical Exam Appears: Positive for: Non-toxic, No Acute Distress Head Exam: Positive for: ATRAUMATIC, NORMOCEPHALIC Skin: Positive for: Normal Color, Warm, Dry Eye Exam: Positive for: EOMI, Normal appearance, PERRL Neck: Positive for: Normal, Painless ROM, Supple Cardiovascular/Chest: Positive for: Regular Rate, Rhythm. Negative for: Murmur Respiratory: Positive for: Normal Breath Sounds. Negative for: Respiratory Distress Gastrointestinal/Abdominal: Positive for: Normal Exam, Soft. Negative for: Tenderness Back: Positive for: Normal Inspection. Negative for: L CVA Tenderness, R CVA Tenderness, Vertebral Tenderness Extremity: Positive for: Normal ROM. Negative for: Pedal Edema, Deformity Neurologic/Psych: Positive for: Alert, Oriented. Negative for: Motor/Sensory Deficits - ECG O2 Sat by Pulse Oximetry: 97 (RA) Pulse Ox Interpretation: Normal Medical Decision Making Medical Decision Making: Time: 00:03 Initial Impression: URI Initial Plan: --Chest xray --Promethazine 12.5 mg PO --Influenza AB Influenza A B --results are negative. Patient requires no further treatment at this time and is medically stable. Will be discharged home. Return if symptoms persist or worsen. Scribe Attestation: Documented by Marysol Durant, acting as a scribe for Chetan Garcia MD Provider Scribe Attestation: All medical record entries made by the Scribe were at my direction and personally dictated by me. I have reviewed the chart and agree that the record accurately reflects my personal performance of the history, physical exam, medical decision making, and the department course for this patient. I have also personally directed, reviewed, and agree with the discharge instructions and disposition. Disposition - Clinical Impression Clinical Impression: Cough - Patient ED Disposition Is Patient to be Admitted: No - Disposition Referrals: Haylee Bautista MD [Primary Care Provider] - Disposition: Routine/Home Disposition Time: 04:39 Condition: STABLE Prescriptions: Promethazine [Phenergan] 12.5 mg PO BID PRN #12 tab PRN Reason: Cough Instructions: Acute Cough (ED) Forms: [facility] (Kyrgyz)
[2017-12-13] MEDS ORDERED: Promethazine 6.25 MG/5 ML CUP ONE (02:21)
--- NOTE | 2017-12-13 08:03 | RAD ---
HISTORY: cough COMPARISON: Chest radiographs 12/08/2017. TECHNIQUE: Chest PA and lateral FINDINGS: LUNGS: Prior left basilar linear atelectasis or fibrosis is less apparent at this time. No acute alveolitis bilaterally. PLEURA: No significant pleural effusion identified. No pneumothorax apparent. CARDIOVASCULAR: Stable mild cardiomegaly. No pulmonary vascular derangement appreciated. OSSEOUS STRUCTURES: No significant abnormalities. VISUALIZED UPPER ABDOMEN: Normal. OTHER FINDINGS: None. IMPRESSION: No interval acute cardiopulmonary disease appreciable. Stable mild cardiomegaly.
== END 2017-12-13 06:13 | disposition home or self-care (01) ==
LOC: H.ER 23:22
DX: R05 Cough (principal); R09.81 Nasal congestion; E03.9 Hypothyroidism, unspecified; F20.9 Schizophrenia, unspecified; F31.9 Bipolar disorder, unspecified; I10 Essential (primary) hypertension

== ENCOUNTER 2017-12-23 22:19 | Emergency (ER) | payer MEDICARE, MEDICAID ==
[2017-12-23 22:19] VITALS: BMI 28.1
[2017-12-23 22:31] VITALS: PULSE 72; RESP 18; TEMP 98.4; O2SAT 100
[2017-12-23 23:53] VITALS: BP 118/95
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
== END 2017-12-24 00:18 | disposition home or self-care (01) ==
LOC: H.ER 22:19
DX: S09.90XA Unspecified injury of head, initial encounter (principal); W22.8XXA Striking against or struck by other objects, initial encounter; Y92.89 Other specified places as the place of occurrence of the external cause; E03.9 Hypothyroidism, unspecified; F20.9 Schizophrenia, unspecified; F31.9 Bipolar disorder, unspecified; I10 Essential (primary) hypertension

== ENCOUNTER 2017-12-28 23:07 | Emergency (ER) | payer MEDICARE, MEDICAID ==
[2017-12-28 23:07] VITALS: BMI 28.1
[2017-12-28 23:47] VITALS: BP 167/109; PULSE 74; RESP 18; TEMP 98.3; O2SAT 99
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
== END 2017-12-29 04:59 | disposition home or self-care (01) ==
LOC: H.ER 23:07
DX: S09.90XA Unspecified injury of head, initial encounter (principal); Y04.0XXA Assault by unarmed brawl or fight, initial encounter; Y92.89 Other specified places as the place of occurrence of the external cause; E03.9 Hypothyroidism, unspecified; F20.9 Schizophrenia, unspecified; F31.9 Bipolar disorder, unspecified; I10 Essential (primary) hypertension

== ENCOUNTER 2018-01-11 00:06 | Emergency (ER) | payer MEDICARE, MEDICAID ==
[2018-01-11 00:21] VITALS: BMI 38.3
[2018-01-11 00:23] VITALS: BP 150/89; PULSE 84; RESP 15; TEMP 97.5; O2SAT 96
--- NOTE | 2018-01-11 00:51 | ED PDOC ---
HPI: General Adult Time Seen by Provider: 01/11/18 00:34 Chief Complaint (Nursing): Med Refill Chief Complaint (Provider): Med Refill History Per: Patient History/Exam Limitations: no limitations Additional Complaint(s): 47 y/o female presents to the ED for blood pressure medications refill. Patient ran out of BP medications yesterday and has headache and chest pain. Denies any further medical complaints. Past Medical History Reviewed: Historical Data, Nursing Documentation, Vital Signs Vital Signs: Last Vital Signs Temp 97.5 F L 01/11/18 00:20 Pulse 84 01/11/18 00:20 Resp 15 01/11/18 00:20 BP 150/89 01/11/18 00:20 Pulse Ox 96 01/11/18 00:53 - Medical History PMH: Bipolar Disorder, Depression, HTN, Hypothyroidism, Schizophrenia Denies: Chronic Kidney Disease - Surgical History Surgical History: Cholecystectomy - Family History Family History: States: Unknown Family Hx - Home Medications Home Medications: Ambulatory Orders Medication Instructions Recorded Potassium Chloride 10 meq PO DAILY #10 tab.er.prt 10/15/17 hydroCHLOROthiazide [Hydrodiuril] 25 mg PO DAILY #10 tab 10/15/17 Clotrimazole/Betamethasone 1 appful EXT BID #30 g 11/20/17 [Lotrisone] DiphenhydrAMINE [Benadryl] 50 mg PO QID PRN #30 cap 11/20/17 hydroCHLOROthiazide [Hydrodiuril] 25 mg PO DAILY #30 tab 12/08/17 Promethazine [Phenergan] 12.5 mg PO BID PRN #12 tab 12/13/17 Hydrochlorothiazide [Microzide] 25 mg PO DAILY #30 cap 01/11/18 - Allergies Allergies/Adverse Reactions: Allergies Allergy/AdvReac Type Severity Reaction Status Date / Time divalproex sodium Allergy RASH Verified 01/11/18 00:20 [From Depakote] haloperidol [From Haldol] Allergy RASH Verified 01/11/18 00:20 haloperidol lactate Allergy RASH Verified 01/11/18 00:20 [From Haldol] olanzapine [From Zyprexa] Allergy RASH Verified 01/11/18 00:20 risperidone [From Risperdal] Allergy RASH Verified 01/11/18 00:20 Review of Systems ROS Statement: Except As Marked, All Systems Reviewed And Found Negative (As per HPI, otherwise negative) Cardiovascular: Positive for: Chest Pain Neurological: Positive for: Headache Physical Exam - Reviewed Nursing Documentation Reviewed: Yes Vital Signs Reviewed: Yes - Physical Exam Appears: Positive for: Well, Non-toxic, No Acute Distress Head Exam: Positive for: ATRAUMATIC, NORMAL INSPECTION, NORMOCEPHALIC Skin: Positive for: Normal Color, Warm, Dry Eye Exam: Positive for: Normal appearance ENT: Positive for: Normal ENT Inspection Neck: Positive for: Normal, Painless ROM, Supple Cardiovascular/Chest: Positive for: Regular Rate, Rhythm. Negative for: Murmur Respiratory: Positive for: Normal Breath Sounds. Negative for: Accessory Muscle Use, Respiratory Distress Gastrointestinal/Abdominal: Positive for: Normal Exam, Bowel Sounds, Soft Back: Positive for: Normal Inspection Extremity: Positive for: Normal ROM. Negative for: Deformity Neurologic/Psych: Positive for: Alert, Oriented (x3) - ECG O2 Sat by Pulse Oximetry: 96 (RA) Pulse Ox Interpretation: Normal Medical Decision Making Medical Decision Making: Impression: Med refill Scribe Attestation: Documented by Jack Kern acting as a scribe for Chetan Garcia MD. Scribe Attestation: All medical record entries made by the Scribe were at my direction and personally dictated by me. I have reviewed the chart and agree that the record accurately reflects my personal performance of the history, physical exam, medical decision making, and the department course for this patient. I have also personally directed, reviewed, and agree with the discharge instructions and disposition. Disposition - Clinical Impression Clinical Impression: Hypertension - Disposition Referrals: [facility] [Outside] Disposition Time: 00:30 Condition: GOOD Prescriptions: Hydrochlorothiazide [Microzide] 25 mg PO DAILY #30 cap Instructions: Medicine Refill (ED) Forms: [employer] (Malaysian)
== END 2018-01-11 00:45 | disposition home or self-care (01) ==
LOC: H.ER 00:06
DX: Z76.0 Encounter for issue of repeat prescription (principal); I10 Essential (primary) hypertension; E03.9 Hypothyroidism, unspecified; F20.9 Schizophrenia, unspecified; F31.9 Bipolar disorder, unspecified

== ENCOUNTER 2018-02-08 23:02 | Emergency (ER) | payer MEDICARE, MEDICAID ==
[2018-02-08 23:02] VITALS: BMI 34.4
[2018-02-08 23:08] VITALS: BP 150/95; PULSE 84; RESP 18; TEMP 97.4; O2SAT 99
--- NOTE | 2018-02-09 01:16 | ED PDOC ---
HPI: General Adult Time Seen by Provider: 02/08/18 23:12 Chief Complaint (Nursing): Med Refill Chief Complaint (Provider): Med Refill History Per: Patient History/Exam Limitations: no limitations Onset/Duration Of Symptoms: Days (few days) Current Symptoms Are (Timing): Still Present Additional Complaint(s): Saige Marcos is a 47 year old female, well known to the ER, with a past medical history of hypertension, who presents to the ER for a mediation refill. Patient states that she ran out of her blood pressure medications as well as her potassium medication, a few days ago. She denies any chest pain, shortness of breath, fever, chills, nausea or vomiting. Patient offers no other medical complaints at this time. PMD: Sapna Bautista Past Medical History Reviewed: Historical Data, Nursing Documentation, Vital Signs Vital Signs: Last Vital Signs Temp 97.4 F L 02/08/18 23:06 Pulse 84 02/08/18 23:06 Resp 18 02/08/18 23:06 BP 150/95 H 02/08/18 23:06 Pulse Ox 99 02/09/18 01:24 - Medical History PMH: Bipolar Disorder, Depression, HTN, Hypothyroidism, Schizophrenia Denies: Diabetes, Hepatitis, HIV, Chronic Kidney Disease, Seizures, Sexually Transmitted Disease - Surgical History Surgical History: Cholecystectomy - Family History Family History: States: Unknown Family Hx - Home Medications Home Medications: Ambulatory Orders Medication Instructions Recorded hydroCHLOROthiazide [Hydrodiuril] 25 mg PO DAILY #30 tab 12/08/17 - Allergies Allergies/Adverse Reactions: Allergies Allergy/AdvReac Type Severity Reaction Status Date / Time divalproex sodium Allergy RASH Verified 01/22/18 13:16 [From Depakote] haloperidol [From Haldol] Allergy RASH Verified 01/22/18 13:16 haloperidol lactate Allergy RASH Verified 01/22/18 13:16 [From Haldol] olanzapine [From Zyprexa] Allergy RASH Verified 01/22/18 13:16 risperidone [From Risperdal] Allergy RASH Verified 01/22/18 13:16 Review of Systems ROS Statement: Except As Marked, All Systems Reviewed And Found Negative Constitutional: Negative for: Fever, Chills Cardiovascular: Negative for: Chest Pain Respiratory: Negative for: Shortness of Breath Gastrointestinal: Negative for: Nausea, Vomiting Physical Exam - Reviewed Nursing Documentation Reviewed: Yes Vital Signs Reviewed: Yes - Physical Exam Appears: Positive for: Non-toxic, No Acute Distress Head Exam: Positive for: ATRAUMATIC, NORMAL INSPECTION, NORMOCEPHALIC Skin: Positive for: Normal Color, Warm, Dry Eye Exam: Positive for: EOMI, Normal appearance, PERRL Neck: Positive for: Normal, Painless ROM, Supple Cardiovascular/Chest: Positive for: Regular Rate, Rhythm. Negative for: Murmur Respiratory: Positive for: Normal Breath Sounds. Negative for: Respiratory Distress Gastrointestinal/Abdominal: Positive for: Normal Exam, Soft. Negative for: Tenderness Back: Positive for: Normal Inspection. Negative for: L CVA Tenderness, R CVA Tenderness, Vertebral Tenderness Extremity: Positive for: Normal ROM. Negative for: Pedal Edema, Deformity, Swelling Neurologic/Psych: Positive for: Alert, Oriented - ECG O2 Sat by Pulse Oximetry: 99 (RA) Pulse Ox Interpretation: Normal Medical Decision Making Medical Decision Making: Time:00:20 Impression: medication refill and homelessness. Advised patient that she needs to followup in [facility] to have her medications refilled. Scribe Attestation: Documented by Vannesa Buckley, acting as a scribe for Chetan Garcia MD Provider Scribe Attestation: All medical record entries made by the Scribe were at my direction and personally dictated by me. I have reviewed the chart and agree that the record accurately reflects my personal performance of the history, physical exam, medical decision making, and the department course for this patient. I have also personally directed, reviewed, and agree with the discharge instructions and disposition. Disposition - Clinical Impression Clinical Impression: Encounter for medical screening examination - Patient ED Disposition Is Patient to be Admitted: No - Disposition Referrals: [facility] [place] [Outside] Disposition: Routine/Home Disposition Time: 03:03 Condition: STABLE Instructions: Deciding Where to Go for Care Forms: [facility] (Romansh)
== END 2018-02-09 06:09 | disposition home or self-care (01) ==
LOC: H.ER 23:02
DX: Z76.0 Encounter for issue of repeat prescription (principal); E03.9 Hypothyroidism, unspecified; F20.9 Schizophrenia, unspecified; F31.9 Bipolar disorder, unspecified; I10 Essential (primary) hypertension; Z59.0 Homelessness

== ENCOUNTER 2018-02-13 22:05 | Emergency (ER) | payer MEDICARE, MEDICAID ==
[2018-02-13 22:05] VITALS: BMI 34.4
[2018-02-13 22:22] VITALS: BP 155/96; PULSE 77; RESP 16; TEMP 97.3; O2SAT 99
--- NOTE | 2018-02-13 23:15 | ED PDOC ---
HPI: General Adult Time Seen by Provider: 02/13/18 22:24 Chief Complaint (Nursing): Med Refill History Per: Patient History/Exam Limitations: no limitations Additional Complaint(s): 47 yo F with pmh of HTN, reports that she needs a refill of her HCTZ 25 mg daily and K Cl ER 10 meq tabs daily. Otherwise: has no other complaints, (-) dyspnea, (-) muscle ache / spasm, (-) headache, (-) dizziness, (-) syncope, (-) nausea, (-) vomiting, (-) calf swelling/pain, (-) neuro deficits. Past Medical History Vital Signs: Last Vital Signs Temp 97.3 F L 02/13/18 22:20 Pulse 77 02/13/18 22:20 Resp 16 02/13/18 22:20 BP 155/96 H 02/13/18 22:20 Pulse Ox 99 02/13/18 22:20 - Medical History PMH: Bipolar Disorder, Depression, HTN, Hypothyroidism, Schizophrenia Denies: Diabetes, Hepatitis, HIV, Chronic Kidney Disease, Seizures, Sexually Transmitted Disease - Surgical History Surgical History: Cholecystectomy - Family History Family History: States: Unknown Family Hx - Home Medications Home Medications: Ambulatory Orders Medication Instructions Recorded hydroCHLOROthiazide [Hydrodiuril] 25 mg PO DAILY #30 tab 12/08/17 Hydrochlorothiazide [Microzide] 25 mg PO DAILY #60 cap 02/13/18 Potassium Chloride 10 meq PO DAILY #30 capsule.er 02/13/18 - Allergies Allergies/Adverse Reactions: Allergies Allergy/AdvReac Type Severity Reaction Status Date / Time divalproex sodium Allergy RASH Verified 02/13/18 22:19 [From Depakote] haloperidol [From Haldol] Allergy RASH Verified 02/13/18 22:19 haloperidol lactate Allergy RASH Verified 02/13/18 22:19 [From Haldol] olanzapine [From Zyprexa] Allergy RASH Verified 02/13/18 22:19 risperidone [From Risperdal] Allergy RASH Verified 02/13/18 22:19 Review of Systems Constitutional: Negative for: Fever, Chills, Weakness Cardiovascular: Negative for: Chest Pain, Palpitations, Orthopnea Respiratory: Positive for: Cough (prior cough, but resolved). Negative for: Shortness of Breath, Hemoptysis Gastrointestinal: Negative for: Nausea, Vomiting, Abdominal Pain Musculoskeletal: Negative for: Neck Pain, Shoulder Pain, Back Pain Physical Exam - Physical Exam Comments: GENERAL APPEARANCE: Patient is awake, alert, oriented x 3, in no acute distress. SKIN: Warm, dry; (-) cyanosis. EYES: (-) conjunctival pallor. ENMT: Mucous membranes moist. NECK: (-) tenderness, (-) stiffness, (-) lymphadenopathy, (-) JVD. CHEST AND RESPIRATORY: (-) rash, (-) chest wall tenderness. Lungs: (-) rales , (-) rhonchi, (-) wheezes, (-) rub; breath sounds equal bilaterally. HEART AND CARDIOVASCULAR: (-) irregularity; (-) murmur, (-) gallop, (-) rub. ABDOMEN AND GI: Soft; (-) distention, (-) tenderness, (-) palpable pulsatile mass. EXTREMITIES: (-) deformity; (-) edema, (-) calf tenderness. (+) distal pulses. NEURO AND PSYCH: Mental status as above. Cranial nerves grossly intact; strength symmetric. - ECG O2 Sat by Pulse Oximetry: 99 Medical Decision Making Medical Decision Making: Advised to follow up with the clinic in 1-2 days without fail. Advised to take medication as prescribed. Return to the emergency room at any time for any new or worsening symptoms. Patient states she fully agrees with and understands discharge instructions. States that she agrees with the plan and disposition. Verbalized and repeated discharge instructions and plan. I have given the patient opportunity to ask any additional questions. Disposition - Clinical Impression Clinical Impression: Medication refill, Hypertension - Patient ED Disposition Is Patient to be Admitted: No Counseled Patient/Family Regarding: Diagnosis, Need For Followup, Rx Given - Disposition Referrals: [facility] [Outside] Disposition: Routine/Home Disposition Time: 22:45 Condition: STABLE Prescriptions: Hydrochlorothiazide [Microzide] 25 mg PO DAILY #60 cap Potassium Chloride 10 meq PO DAILY #30 capsule.er Instructions: High Blood Pressure in Adults Forms: [facility] (Danish) - PA / HEAD BANQUET WAITER/WAITRESS / Resident Statement MD/DO has reviewed & agrees with the documentation as recorded.
== END 2018-02-13 23:21 | disposition home or self-care (01) ==
LOC: H.ER 22:05
DX: Z76.0 Encounter for issue of repeat prescription (principal); E03.9 Hypothyroidism, unspecified; F20.9 Schizophrenia, unspecified; F31.9 Bipolar disorder, unspecified; I10 Essential (primary) hypertension

== ENCOUNTER 2018-02-27 21:19 | Emergency (ER) | payer MEDICARE, MEDICAID ==
[2018-02-27 21:20] VITALS: BMI 34.4
[2018-02-27 21:31] VITALS: BP 148/98; PULSE 72; RESP 16; TEMP 98.2; O2SAT 97
--- NOTE | 2018-02-27 21:36 | ED PDOC ---
HPI: Skin/Bite Injury Time Seen by Provider: 02/27/18 21:36 Chief Complaint (Nursing): Abnormal Skin Integrity Chief Complaint (Provider): rash History Per: Patient Additional Complaint(s): 47-year-old non-domiciled female presents to emergency department with nasal congestion, dry cough and rash to back of neck. Patient states symptoms started 3 days ago. No fever or chills. She denies any chest pain, shortness of breath or dyspnea on exertion. Patient is well-known to the emergency department for frequent visits. PMD: none Past Medical History Reviewed: Historical Data, Nursing Documentation, Vital Signs Vital Signs: Last Vital Signs Temp 98.2 F 02/27/18 21: Pulse 72 02/27/18 21:29 Resp 16 02/27/18 21: BP 148/98 H 02/27/18 21: Pulse Ox 97 02/27/18 21:36 - Medical History PMH: Bipolar Disorder, Depression, HTN, Hypothyroidism, Schizophrenia - Surgical History Surgical History: Cholecystectomy - Family History Family History: States: No Known Family Hx - Living Arrangements Living Arrangements: Other (non-domiciled) - Social History Current smoker - smoking cessation education provided: No Alcohol: None Drugs: Denies - Home Medications Home Medications: Ambulatory Orders Medication Instructions Recorded hydroCHLOROthiazide [Hydrodiuril] 25 mg PO DAILY #30 tab 12/08/17 Hydrochlorothiazide [Microzide] 25 mg PO DAILY #60 cap 02/13/18 Potassium Chloride 10 meq PO DAILY #30 capsule.er 02/13/18 Azithromycin [Zithromax] 250 mg PO DAILY #6 tab 02/27/18 DiphenhydrAMINE [Benadryl] 25 mg PO Q6H #1 bottle 02/27/18 Hydrocortisone [Hydrocortisone 1 applic TOP TID #1 tube 02/27/18 2.5% Cream] - Allergies Allergies/Adverse Reactions: Allergies Allergy/AdvReac Type Severity Reaction Status Date / Time divalproex sodium Allergy RASH Verified 02/27/18 21:28 [From Depakote] haloperidol [From Haldol] Allergy RASH Verified 02/27/18 21:28 haloperidol lactate Allergy RASH Verified 02/27/18 21:28 [From Haldol] olanzapine [From Zyprexa] Allergy RASH Verified 02/27/18 21:28 risperidone [From Risperdal] Allergy RASH Verified 02/27/18 21:28 Review of Systems ROS Statement: Except As Marked, All Systems Reviewed And Found Negative Constitutional: Negative for: Fever ENT: Positive for: Nose Congestion Cardiovascular: Negative for: Chest Pain Respiratory: Positive for: Cough (dry) Gastrointestinal: Negative for: Vomiting Skin: Positive for: Rash Physical Exam - Reviewed Nursing Documentation Reviewed: Yes Vital Signs Reviewed: Yes - Physical Exam Appears: Positive for: Well, Non-toxic, No Acute Distress Skin: Positive for: Rash (Maculopapular erythematous rash noted to posterior neck with skin excoriations from scratching, appearance consistent with contact dermatitis, no acute infection noted, no rash elsewhere on body) Eye Exam: Positive for: Normal appearance ENT: Positive for: Nasal Congestion. Negative for: Pharyngeal Erythema, Tonsillar Exudate, Tonsillar Swelling Cardiovascular/Chest: Positive for: Regular Rate, Rhythm Respiratory: Positive for: Normal Breath Sounds Neurologic/Psych: Positive for: Alert, Oriented - ECG O2 Sat by Pulse Oximetry: 97 Pulse Ox Interpretation: Normal Medical Decision Making Medical Decision Making: Impression: Contact dermatitis and URI Plan: PO benadryl 25 mg in ED Rx hydrocortisone topical cream, Zithromax and Benadryl provided. Patient referred to clinic for follow up. Disposition - Clinical Impression Clinical Impression: Contact dermatitis, Upper respiratory infection - Patient ED Disposition Is Patient to be Admitted: No Counseled Patient/Family Regarding: Diagnosis, Need For Followup, Rx Given - Disposition Referrals: [facility] [Outside] Disposition: Routine/Home Disposition Time: 21:45 Condition: STABLE Additional Instructions: Take prescription meds as directed. Follow-up with clinic in 2-3 days. Prescriptions: Azithromycin [Zithromax] 250 mg PO DAILY #6 tab DiphenhydrAMINE [Benadryl] 25 mg PO Q6H #1 bottle Hydrocortisone [Hydrocortisone 2.5% Cream] 1 applic TOP TID #1 tube Instructions: Contact Dermatitis (DC), Bacterial Upper Respiratory Infection, Adult (DC) Forms: [employer] ([place]ian)
== END 2018-02-27 22:19 | disposition home or self-care (01) ==
LOC: H.ER 21:19
DX: L25.9 Unspecified contact dermatitis, unspecified cause (principal); J06.9 Acute upper respiratory infection, unspecified; E03.9 Hypothyroidism, unspecified; F20.9 Schizophrenia, unspecified; F31.9 Bipolar disorder, unspecified; I10 Essential (primary) hypertension